=== PATIENT | female | born 1950 | race Caucasian/White ===

== ENCOUNTER → 2016-09-29 | Day surgery (SDC) | payer OTHER ==
[2016-09-24 08:43] VITALS: Ht 170.2 cm; Wt 70.5 kg
[~2016-09-29] VITALS: Ht 170.2 cm; Wt 70.5 kg
[~2016-09-29] MED LIST: ACET1TAB84 PO; CALC1CHW PO; DICY10CA12 PO; IBAN150T PO; LEVO25TA5 PO; LIDOCAINE HCL 1% MPF 5 ML VIAL ONE; LISI-729 PO; MISC4CAP PO; NITR1CAP33 PO; NRN/300 PO; OMEG10007 PO; OXYC-57 PO; RANI150T3 PO; ROPI2TAB6 PO; SENN8.6C PO; SODIUM CHLORIDE 0.9% INJ 10 ML VIAL ONE; SUCR5SUS PO; ZOLP10TA PO
--- NOTE | 2016-09-29 14:12 | History & Physical Bridge - [place] ---
H&P Re-Evaluation Bridge Note: I have examined the patient, reviewed the History & Physical and in the interval since the performance of the History & Physical I have noted the following changes of clinical significance: No changes noted
[2016-09-29 14:44] VITALS: BP 179/66; TEMP 36.6; O2SAT 96
--- NOTE | 2016-09-29 14:45 | Discharge Instructions ---
Discharge Instructions Visit Reason for Visit: Low Back Pain Discharge Discharge Diagnosis / Problem: Right leg pain Discharge Goals Goal(s): Decrease discomfort, Improve function Activity Recommendations Activity Limitations: resume your previous activity Anesthesia . Post Anesthesia Instructions: If you have had General Anesthesia or IV Sedation: * Do not drive today. * Resume driving when surgeon permits. * Do not make important decisions or sign legal documents today. * Call surgeon for: 1. Temperature elevations greater than 101 degrees F. 2. Uncontrollable pain. 3. Excessive bleeding. 4. Persistent nausea and vomiting. 5. Medication intolerance (nausea, vomiting or rash). * For nausea and vomiting use only clear liquids such as: tea, soda, bouillon until nausea subsides, then gradually increase diet as tolerated. * If you have any concerns or questions, call your surgeon's office. If physician is unavailable and it is an emergency, call 911 or go to the nearest emergency room. . Diet Recommendations Recommended Home Diet: resume previous diet Procedures Procedures Performed: CAUDAL EPIDURAL STEROID INJECTION Pending Studies Studies pending at discharge: no Medical Emergencies . Who to Call and When: Medical Emergencies: If at any time you feel your situation is an emergency, please call 911 immediately. . Non-Emergent Contact Non-Emergency issues call your: Specialist . . "Provider Documentation" section prepared by Tristian Wade.
--- NOTE | 2016-09-29 15:04 | OPERATIVE REPORT ---
DATE OF OPERATION: 09/29/2016 PREOPERATIVE DIAGNOSIS: History of an L5-S1 discectomy and laminectomy with recurrent right L5 radiculopathy. POSTOPERATIVE DIAGNOSIS: Same. PROCEDURE: Caudal epidural steroid injection under fluoroscopic guidance. INDICATIONS: The patient is a 65-year-old white female that had a discectomy and decompression surgery in 2011 and then repeat in 2013. She has persistent right L5 radiculopathy that has not responded to surgery nor responded to conservative treatment. She presents today for a caudal epidural injection to relieve the radicular pain down the leg. PHYSICAL EXAMINATION: GENERAL: Pleasant female seated comfortably in no apparent distress. MUSCULOSKELETAL: She has some tenderness to palpation of the right sciatic notch. She is limited with both forward flexion and extension. Extension also reproduced axial back pain. She had intact lower extremity strength and positive seated straight leg raise of her right lower extremity. CONSENT: Verbal and written consent was obtained from the patient. Risks and benefits were reviewed. Risks include but are not limited to epidural abscess, allergic reaction. She wishes to proceed. DESCRIPTION OF PROCEDURE: The patient was taken back to the special procedures room of the [facility]. She was maintained in a prone position. Backside was cleansed with Betadine x3 and a dry sterile dressing was applied. Fluoroscope was used to identify the sacral hiatus and the overlying skin was anesthetized with 5 mL of lidocaine 1% with a 25 gauge 1.5-inch needle. A 25 gauge 3.5 inch spinal needle was then directed under fluoroscopic guidance laterally into the canal. She then underwent injection after negative aspiration of 40 mg of Depo-Medrol and 4 mL of preservative-free sodium chloride. Injection was well tolerated. DISPOSITION: 1. The patient is taken out into the discharge recovery area where she will be discharged home once discharge criteria have been met. 2. Follow up in the [facility] office in 2-4 weeks. I attest to the content of the Intraoperative Record and any orders documented therein. Any exceptio ns are noted below.
== END | disposition home or self-care (01) ==
LOC: X.SURG 13:23
PROVIDERS: ATTEND Physical Medicine & Rehabilitation
DX: M54.16 Radiculopathy, lumbar region (principal); M96.1 Postlaminectomy syndrome, not elsewhere classified; Z98.890 Other specified postprocedural states; Z90.49 Acquired absence of other specified parts of digestive tract; Z98.51 Tubal ligation status

== ENCOUNTER → 2017-02-24 | Day surgery (SDC) | payer OTHER ==
[2017-02-07 10:07] VITALS: Ht 170.2 cm; Wt 71.4 kg
[~2017-02-24] VITALS: Ht 170.2 cm; Wt 71.4 kg
[~2017-02-24] MED LIST changes: -NRN/300 PO; -OXYC-57 PO
[2017-02-24 14:22] VITALS: TEMP 36.4
--- NOTE | 2017-02-24 14:24 | Discharge Instructions ---
Discharge Instructions Date of Service Feb 24, 2017. Visit Reason for Visit: Lumbar Radiculopathy Discharge Discharge Diagnosis / Problem: right leg pain Discharge Goals Goal(s): Decrease discomfort, Improve function Activity Recommendations Activity Limitations: resume your previous activity Anesthesia . Post Anesthesia Instructions: If you have had General Anesthesia or IV Sedation: * Do not drive today. * Resume driving when surgeon permits. * Do not make important decisions or sign legal documents today. * Call surgeon for: 1. Temperature elevations greater than 101 degrees F. 2. Uncontrollable pain. 3. Excessive bleeding. 4. Persistent nausea and vomiting. 5. Medication intolerance (nausea, vomiting or rash). * For nausea and vomiting use only clear liquids such as: tea, soda, bouillon until nausea subsides, then gradually increase diet as tolerated. * If you have any concerns or questions, call your surgeon's office. If physician is unavailable and it is an emergency, call 911 or go to the nearest emergency room. . Diet Recommendations Recommended Home Diet: resume previous diet Procedures Procedures Performed: Caudal Epidural Steroid Injection Pending Studies Studies pending at discharge: no Medical Emergencies . Who to Call and When: Medical Emergencies: If at any time you feel your situation is an emergency, please call 911 immediately. . Non-Emergent Contact Non-Emergency issues call your: Specialist . . "Provider Documentation" section prepared by Tristian Wade. .
[2017-02-24 14:37] VITALS: BP 158/75; PULSE 58; O2SAT 96
--- NOTE | 2017-02-24 15:08 | OPERATIVE REPORT ---
DATE OF OPERATION: 02/24/2017 PREOPERATIVE DIAGNOSIS: Post-laminectomy syndrome with chronic right lower extremity radiculopathy. POSTOPERATIVE DIAGNOSIS: Same. PROCEDURE: Caudal epidural steroid injection under fluoroscopic guidance. SURGEON: Dr. Tristian Wade. INDICATIONS: The patient is a 66-year-old white female who had a caudal epidural injection done on September and she has got more than 3 months of relief; however, the pain relief is starting to wane and return and she presents today for an epidural injection to provide her with relief of right lower extremity radiculopathy pain. PHYSICAL EXAMINATION: Pleasant female seated comfortably. She has some sciatic notch sensitivity on the right side. No issues with flexion or extension. Normal motor and sensory exam with negative seated straight leg raises. CONSENT: Verbal and written consent was reviewed with the patient. Risks include but are not limited to epidural abscess and allergic reaction. The patient wishes to proceed. PROCEDURE: The patient was taken back to the special procedures room of [facility]. She was maintained in a prone position. Backside was cleansed with Betadine x3 and a dry sterile dressing was applied. Fluoroscope was used to identify the sacral hiatus from the lateral aspect. The overlying skin was anesthetized with a 21-gauge 1-1/2 inch Tuohy needle. Overlying skin was anesthetized and a 25 gauge 3.5 inch spinal needle was then directed into the sacral hiatus and fluoroscopically advanced into the sacral canal. She then underwent injection after negative aspiration of 40 mg of Depo-Medrol and 5 mL of preservative free sodium chloride. Injection reproduced some pressure feeling. DISPOSITION: 1. The patient is taken out into the discharge recovery area where she will be discharged home once discharge criteria have been met. 2. Follow up in the [facility] office in 2-4 weeks. I attest to the content of the Intraoperative Record and any orders documented therein. Any exception s are noted below.
== END | disposition home or self-care (01) ==
LOC: X.SURG 12:29
PROVIDERS: ATTEND Physical Medicine & Rehabilitation
DX: M96.1 Postlaminectomy syndrome, not elsewhere classified (principal); M54.16 Radiculopathy, lumbar region

== ENCOUNTER → 2017-06-09 | Day surgery (SDC) | payer OTHER ==
[2017-05-19 08:21] VITALS: Ht 170.2 cm; Wt 71.4 kg
[~2017-06-09] VITALS: Ht 170.2 cm; Wt 71.4 kg
[2017-06-09 13:59] VITALS: TEMP 37.1
--- NOTE | 2017-06-09 15:32 | Discharge Instructions ---
Discharge Instructions Date of Service Jun 09, 2017. Visit Reason for Visit: Lumbar Radiculopathy Discharge Discharge Diagnosis / Problem: left leg pain Discharge Goals Goal(s): Decrease discomfort, Improve function Activity Recommendations Activity Limitations: resume your previous activity Anesthesia . Post Anesthesia Instructions: If you have had General Anesthesia or IV Sedation: * Do not drive today. * Resume driving when surgeon permits. * Do not make important decisions or sign legal documents today. * Call surgeon for: 1. Temperature elevations greater than 101 degrees F. 2. Uncontrollable pain. 3. Excessive bleeding. 4. Persistent nausea and vomiting. 5. Medication intolerance (nausea, vomiting or rash). * For nausea and vomiting use only clear liquids such as: tea, soda, bouillon until nausea subsides, then gradually increase diet as tolerated. * If you have any concerns or questions, call your surgeon's office. If physician is unavailable and it is an emergency, call 911 or go to the nearest emergency room. . Diet Recommendations Recommended Home Diet: resume previous diet Procedures Procedures Performed: CAUDAL EPIDURAL STEROID INJECTION Pending Studies Studies pending at discharge: no Medical Emergencies . Who to Call and When: Medical Emergencies: If at any time you feel your situation is an emergency, please call 911 immediately. . Non-Emergent Contact Non-Emergency issues call your: Specialist . . "Provider Documentation" section prepared by Tristian Wade. .
[2017-06-09 15:34] VITALS: BP 187/78; PULSE 52; O2SAT 99
--- NOTE | 2017-06-09 19:06 | OPERATIVE REPORT ---
DATE OF OPERATION: 06/09/2017 PREOPERATIVE DIAGNOSIS: Post-laminectomy syndrome with right lower extremity, L5 radiculopathy. POSTOPERATIVE DIAGNOSIS: Same. PROCEDURE: Caudal epidural steroid injection under fluoroscopic guidance. INDICATIONS: The patient is a 66-year-old white female who has undergone a caudal with good effect. Unfortunately, she over did it and had increased pain following a significant yardwork. She notes that the pain was 80% improved prior to her flare and she would like to receive another epidural to try to provide her with more long lasting relief. PHYSICAL EXAMINATION: GENERAL: Pleasant female seated comfortably, in no apparent distress. MUSCULOSKELETAL: Lumbar paraspinal muscles were palpated and noted to be nontender. She had no issues with forward flexion or extension. She had subjective sensation decreased in the right L5 dermatomal distribution with negative seated straight leg raises. CONSENT: Verbal and written consent was obtained from the patient. Risks and benefits were reviewed. Risks include, but are not limited to epidural abscess and allergic reaction. The patient wishes to proceed. PROCEDURE: The patient was taken back to the special procedures room of [facility]. She was maintained in a prone position. Backside was cleansed with Betadine x3 and a dry sterile dressing was applied. Fluoroscope was used to identify the sacral hiatus and overlying skin was anesthetized with 4 mL of lidocaine 1% with a 25 gauge 1.5-inch needle. A 25 gauge 3.5 inch spinal needle was then directed under lateral fluoroscopic guidance into the canal. She then underwent injection after negative aspiration of 40 mg of Depo-Medrol and 4 mL of preservative free sodium chloride. Injection was well tolerated. DISPOSITION: 1. The patient is taken out into the discharge recovery area where she will be discharged home once discharge criteria have been met. 2. Follow up in the [facility] office in 2-4 weeks. I attest to the content of the Intraoperative Record and any orders documented therein. Any exception s are noted below.
== END | disposition home or self-care (01) ==
LOC: X.SURG 13:37
PROVIDERS: ATTEND Physical Medicine & Rehabilitation
DX: M96.1 Postlaminectomy syndrome, not elsewhere classified (principal)